=== PATIENT | female | born 1970 | race Caucasian/White ===

== ENCOUNTER 2022-11-28 07:53 | Observation (INO) ==
--- NOTE | 2022-10-29 11:39 | PAT Medication Instructions ---
Medication Instructions Date of Service October 29, 2022 Home Medications acetaminophen 500 mg tablet 500 mg PO QID PRN apple cider vinegar 300 mg tablet 300 mg PO QAM calcium carb-ergocalciferol (vit D2) 600 mg calcium-200 unit tablet 1 tab PO QAM cyanocobalamin (vitamin B-12) 500 mcg tablet (Vitamin B-12) 500 mcg PO QAM fremanezumab-vfrm 225 mg/1.5 mL subcutaneous syringe (Ajovy Syringe) 225 mg subcut MO furosemide 20 mg tablet (Lasix) 20 mg PO DAILY PRN gabapentin 100 mg tablet 200 mg PO TID levothyroxine 100 mcg tablet 100 mcg PO QAM lisinopril 20 mg tablet 20 mg PO QAM magnesium 250 mg tablet 250 mg PO BID montelukast 10 mg tablet 10 mg PO HS multivitamin 1 tab PO QAM riboflavin (vitamin B2) 100 mg tablet (Vitamin B-2) 200 mg PO BID sumatriptan succinate 25 mg tablet (Imitrex) 0 mg PO .COMPLEX PRN trazodone 100 mg tablet 100 mg PO HS zinc 10 mg tablet 10 mg PO DAILY Continue as directed fremanezumab-vfrm 225 mg/1.5 mL subcutaneous syringe (Ajovy Syringe) 225 mg subcut MO sumatriptan succinate 25 mg tablet (Imitrex) 0 mg PO .COMPLEX PRN(if needed) STOP taking 2 weeks before surgery (or as soon as possible if surgery is within 2 weeks) apple cider vinegar 300 mg tablet 300 mg PO QAM DO NOT take the morning of surgery calcium carb-ergocalciferol (vit D2) 600 mg calcium-200 unit tablet 1 tab PO QAM cyanocobalamin (vitamin B-12) 500 mcg tablet (Vitamin B-12) 500 mcg PO QAM furosemide 20 mg tablet (Lasix) 20 mg PO DAILY PRN lisinopril 20 mg tablet 20 mg PO QAM magnesium 250 mg tablet 250 mg PO BID multivitamin 1 tab PO QAM riboflavin (vitamin B2) 100 mg tablet (Vitamin B-2) 200 mg PO BID zinc 10 mg tablet 10 mg PO DAILY Take morning of surgery With a small sip of water, OTHERWISE NOTHING TO EAT OR DRINK AFTER MIDNIGHT: acetaminophen 500 mg tablet 500 mg PO QID PRN(if needed) gabapentin 100 mg tablet 200 mg PO TID levothyroxine 100 mcg tablet 100 mcg PO QAM Take evening before surgery acetaminophen 500 mg tablet 500 mg PO QID PRN(if needed) gabapentin 100 mg tablet 200 mg PO TID magnesium 250 mg tablet 250 mg PO BID montelukast 10 mg tablet 10 mg PO HS riboflavin (vitamin B2) 100 mg tablet (Vitamin B-2) 200 mg PO BID trazodone 100 mg tablet 100 mg PO HS Other Notes If you have any questions please call us at [phone] or [phone] or [phone] or [phone]
--- NOTE | 2022-11-07 13:26 | Anesthesiology Consultation ---
Date of Service November 07, 2022 Assessment & Plan (1) Encounter for pre-operative examination: - COVID screening: Per assessment on 11/07: No known COVID-19 positive contacts or current COVID-19 related symptoms. Travel screen negative. Patient vaccinated. At surgeon discretion if preop Covid testing being done. - LUE limb restriction Chart Review Chart Review: Acceptable Risk for Surgery and Patient seen in Pre Admission Testing Teaching & Discussion Pre-Anesthesia Teaching/Discussion Notes: Instructed NPO after midnight before surgery,except medications with 15 cc of water. Medication instructions provided according to the PAT guidelines. History Surgery Operation Date: 11/28/22 09:35 Proposed Procedures p C3-C5 Anterior Cervical Discectomy and Fusion, Spinal Cord Monitoring - Lei Myers DO Height/Weight Height: 5 ft 5 in Weight: 84.4 kg Allergies Allergy/AdvReac Type Severity Reaction Status Date / Time No Known Allergies Allergy Unverified 10/29/22 10:52 Medications Home Medications Medication Instructions Recorded Confirmed Last Taken acetaminophen 500 mg tablet 500 mg PO QID PRN Pain 10/29/22 10/29/22 Unknown apple cider vinegar 300 mg tablet 300 mg PO QAM 10/29/22 10/29/22 Unknown calcium carb-ergocalciferol (vit 1 tab PO QAM 10/29/22 10/29/22 Unknown D2) 600 mg calcium-200 unit tablet cyanocobalamin (vitamin B-12) 500 500 mcg PO QAM 10/29/22 10/29/22 Unknown mcg tablet (Vitamin B-12) fremanezumab-vfrm 225 mg/1.5 mL 225 mg subcut MO 10/29/22 10/29/22 Unknown subcutaneous syringe (Ajovy Syringe) furosemide 20 mg tablet (Lasix) 20 mg PO DAILY PRN swelling 10/29/22 10/29/22 Unknown gabapentin 100 mg tablet 200 mg PO TID 10/29/22 10/29/22 Unknown levothyroxine 100 mcg tablet 100 mcg PO QAM 10/29/22 10/29/22 Unknown lisinopril 20 mg tablet 20 mg PO QAM 10/29/22 10/29/22 Unknown magnesium 250 mg tablet 250 mg PO BID 10/29/22 10/29/22 Unknown montelukast 10 mg tablet 10 mg PO HS 10/29/22 10/29/22 Unknown multivitamin 1 tab PO QAM 10/29/22 10/29/22 Unknown riboflavin (vitamin B2) 100 mg 200 mg PO BID 10/29/22 10/29/22 Unknown tablet (Vitamin B-2) sumatriptan succinate 25 mg tablet 0 mg PO .COMPLEX PRN Migraine 10/29/22 10/29/22 Unknown (Imitrex) Headache trazodone 100 mg tablet 100 mg PO HS 10/29/22 10/29/22 Unknown zinc 10 mg tablet 10 mg PO DAILY 10/29/22 10/29/22 Unknown Past Medical History Medical History HTN (hypertension) HX: breast cancer Left breast (2019), radiation Hypothyroidism Migraine Seasonal allergies Sleep apnea CPAP (compliant) Exercise / Class Metabolic Activity II 4-5 Yardwork/Stairs/Walk up hill (one FS (no CP, no SOB)) Past Family History Family History Other No family history of adverse response to anesthesia Past Surgical History Surgical History History of esophagogastroduodenoscopy (EGD) History of lumpectomy of both breasts Hx of colonoscopy Hx of exploratory laparotomy abdominal Hx of gastric bypass Hx of hysterectomy Hx of lymph node excision left Hx of neck surgery ACDF C5-7 (11/22/17): Grade view 1 with glidescope #3, ETT 7.0 at [facility] Hx of tubal ligation Past Anesthesia History No Hx of Anesthesia Complications (except post-op nausea) and No Family Hx of Anesthesia Complications History of PONV No Hx of Motion Sickness and History of PONV (Improvement when pretreatment provided) Social History Smoking Status: Never smoker Do You Dip or Chew Tobacco: No Hx Alcohol Use: Yes alcohol intake frequency: holidays/special occasions only Hx Substance Use: No substance use type: does not use Review of Systems Patient denies chest pain, shortness of breath, dyspnea on exertion, fever, chills, cough, wheezing, palpitations. Physical Exam Vital Signs VITALS BP 103/71 P 74 TEMP 98.1 SP02 98%RA RESP 16 PHYSICAL Full cervical extension range of motion. Full TMJ range of motion. TMD 3 finger breaths Mallampati Score 2 Dentition: intact, crown Lungs: clear throughout to auscultation Cardiac: regular rate and rhythm, no murmurs noted Spine: normal Carotid arteries: negative bruit Extremities: no LE edema Lab Results Anesthesia Preop Results Results Anesthesia Widget: WBC 5.20 K/ul (4.8-10.8) 11/07/22 Hgb 12.0 g/dl (12.0-16.0) 11/07/22 Hct 36.1 % (37.0-47.0) L 11/07/22 Plt 276 K/uL (130-400) 11/07/22 Na 137 mmol/L (136-145) 11/07/22 K 4.2 mmol/L (3.5-5.1) 11/07/22 Cl 103 mmol/L (98-107) 11/07/22 CO2 28 mmol/L (21-32) 11/07/22 BUN 16 mg/dl (6-23) 11/07/22 Creat 0.97 mg/dl (0.6-1.2) 11/07/22 Glucose Level 116 mg/dl (70-99(Fasting)) H 11/07/22 PT 10.4 Seconds (9.0-12.0) 11/07/22 PTT 25.6 Seconds (21.0-31.0) 11/07/22 INR 0.9 (0.9-1.1) 11/07/22 Urine Color Yellow 11/07/22 Urine Appearance Clear (Clear) 11/07/22 Urine pH 6.0 (4.5-7.5) 11/07/22 Urine Specific [place] 1.006 (1.000-1.030) 11/07/22 Urine Protein Negative (Negative) 11/07/22 Urine Glucose (UA) Negative (Negative) 11/07/22 Urine Ketones Negative (Negative) 11/07/22 Urine Blood Negative (Negative) 11/07/22 Urine Nitrite Negative (Negative) 11/07/22 Urine Bilirubin Negative (Negative) 11/07/22 Urine Urobilinogen Negative (Negative) 11/07/22 Urine Leukocyte Esterase Negative (Negative) 11/07/22 Blood Type O Positive 11/07/22 Antibody Screen NEGATIVE 11/07/22 Testing Electrocardiogram Date: 11/07/22 NSR at 68bpm. Chest X-Ray Date: 11/07/22 FINDINGS: No lines and tubes are seen. The cardiomediastinal silhouette is normal. The lungs are clear. No evidence of pleural effusion or pneumothorax. IMPRESSION: No acute chest disease. COVID-19 Risk Screen Screening Information COVID-19 Screen Date: 11/07/22 Exposure 21 Days Family/Household +COVID Last 21 Days: No Exposure 10 Days Any COVID Exposure Last 10 Days: No Symptoms Last 10 Days Experienced COVID Sx Last 10 Days: No + COVID 0-90 Days COVID + in Last 0-90 Days: No
[~2022-11-28 07:53] MED LIST: ACETAMINOPHEN 500 MG TAB PO SCH; FAMOTIDINE/PF 20 MG/2 ML VIAL IV ONE; GABAPENTIN 600 MG DOSE PO SCH; LR 15ML/HR IV SCH; ceFAZolin 2000MG 2,000 MG/15 ML SYR IV SCH
[2022-11-28] MEDS ORDERED: MIDAZOLAM HCL 1 MG/ML 2ML VIAL ONE (08:48)
[2022-11-28] MEDS ORDERED: fentaNYL citrate PF 100 MCG/2 ML VIAL ONE ×2 (08:48)
[2022-11-28] MEDS ORDERED: LIDOCAINE 2% 2 ML VIAL/AMP(20MG/ML) INFIL ONE (08:55)
[2022-11-28] MEDS ORDERED: LARYING-O-JET KIT (LTA) ONE (08:55)
[2022-11-28] MEDS ORDERED: HYDROmorphone INJ 2 MG/ML SYR/VIAL ONE (08:56)
[2022-11-28] MEDS ORDERED: PROMETHAZINE HCL 6.25 MG in SODIUM CHLORIDE 0.9% 50 ML IV PRN (09:05)
[2022-11-28] MEDS ORDERED: HYDROmorphone INJ 2 MG/ML SYR/VIAL IV PRN (09:05)
[2022-11-28] MEDS ORDERED: ONDANSETRON INJ 2 MG/ML 2 ML VIAL IV PRN ×2 (09:05→13:32)
[2022-11-28] MEDS ORDERED: ePHEDrine sulfate 50 MG/ML AMP IV PRN (09:05)
[2022-11-28] MEDS ORDERED: ATROPINE SULFATE 0.1 MG/ML 10ML SYR IV PRN (09:05)
--- NOTE | 2022-11-28 09:27 | History & Physical Bridge Note ---
Date of Service November 28, 2022 History & Physical Bridge Note I have examined the patient, reviewed the History & Physical and in the interval since the performance of the History & Physical I have noted the following changes of clinical significance: no changes noted
--- NOTE | 2022-11-28 09:28 | History & Physical Report ---
Date of Service November 28, 2022 Assessment & Plan (1) Cervical stenosis of spinal canal: Plan: C3-C5 anterior cervical discectomy and fusion History of Present Illness Chief Complaint: Neck and arm pain Primary Care Provider: Jorge Munoz PA-C This is a 52-year-old female known to me the presents with chronic persistent neck and arm pain after failing since course of nonoperative care is here for surgical invention. Allergies Allergy/AdvReac Type Severity Reaction Status Date / Time No Known Allergies Allergy Verified 11/28/22 08:17 Home Medications Medication Instructions Recorded Confirmed Type acetaminophen 500 mg tablet 500 mg PO QID PRN Pain 10/29/22 11/28/22 History apple cider vinegar 300 mg tablet 300 mg PO QAM 10/29/22 11/28/22 History calcium carb-ergocalciferol (vit 1 tab PO QAM 10/29/22 11/28/22 History D2) 600 mg calcium-200 unit tablet cyanocobalamin (vitamin B-12) 500 500 mcg PO QAM 10/29/22 11/28/22 History mcg tablet (Vitamin B-12) fremanezumab-vfrm 225 mg/1.5 mL 225 mg subcut MO 10/29/22 11/28/22 History subcutaneous syringe (Ajovy Syringe) furosemide 20 mg tablet (Lasix) 20 mg PO DAILY PRN swelling 10/29/22 11/28/22 History gabapentin 100 mg tablet 200 mg PO TID 10/29/22 11/28/22 History levothyroxine 100 mcg tablet 100 mcg PO QAM 10/29/22 11/28/22 History lisinopril 20 mg tablet 20 mg PO QAM 10/29/22 11/28/22 History magnesium 250 mg tablet 250 mg PO BID 10/29/22 11/28/22 History montelukast 10 mg tablet 10 mg PO HS 10/29/22 11/28/22 History multivitamin 1 tab PO QAM 10/29/22 11/28/22 History riboflavin (vitamin B2) 100 mg 200 mg PO BID 10/29/22 11/28/22 History tablet (Vitamin B-2) sumatriptan succinate 25 mg tablet 0 mg PO .COMPLEX PRN Migraine 10/29/22 11/28/22 History (Imitrex) Headache trazodone 100 mg tablet 100 mg PO HS 10/29/22 11/28/22 History zinc 10 mg tablet 10 mg PO DAILY 10/29/22 11/28/22 History Past Med/Surg History Medical History HTN (hypertension) HX: breast cancer Left breast (2019), radiation Hypothyroidism Migraine Seasonal allergies Sleep apnea CPAP (compliant) Surgical History History of esophagogastroduodenoscopy (EGD) History of lumpectomy of both breasts Hx of colonoscopy Hx of exploratory laparotomy abdominal Hx of gastric bypass Hx of hysterectomy Hx of lymph node excision left Hx of neck surgery ACDF C5-7 (11/22/17): Grade view 1 with glidescope #3, ETT 7.0 at [facility] Hx of tubal ligation Family History Other No family history of adverse response to anesthesia Social History Smoking Status: Never smoker Second Hand Exposure: No; Do You Dip or Chew Tobacco: No; Tobacco Cessation Education Requested by Patient: No Hx Alcohol Use: Yes Hx Substance Use: No Preferred Language: Swiss Communication Ability: Effective Upper Cutter Machine Required: No Beliefs That Will Affect Care: None Current Living Situation: Spouse Other Information That Helps Us Care for You: No Feels Safe at Home: Yes Safety Concerns: Feels Safe At This Time Assistive Devices: CPAP Physical Exam Physical Exam: Patient is alert and oriented Heart regular rhythm Lungs clear Results & Data Results & Data Vital Signs (Past 12 Hours) Vital Signs Temp Pulse Resp BP Pulse Ox O2 Del Method 11/28/22 08:21 36.4 C L 64 21 104/71 99 Room Air
[2022-11-28] MEDS ORDERED: ROCURONIUM BROMIDE 10 MG/ML 5 ML VIAL IV ONE (09:37)
[2022-11-28] MEDS ORDERED: SCOPOLAMINE 1 MG TDSY TD ONE (09:41)
[2022-11-28] MEDS ORDERED: ceFAZolin 330 MG/ML 1 GM VIAL ONE (09:50)
[2022-11-28] MEDS ORDERED: diphenhydrAMINE 50 MG/ML VIAL ONE (10:22)
[2022-11-28] MEDS ORDERED: FLOSEAL HEMOSTATIC MATRIX 10ML TOP ONE (10:42)
[2022-11-28] MEDS ORDERED: METOCLOPRAMIDE HCL INJ 5 MG/ML 2 ML VIAL ONE (10:53)
[2022-11-28] MEDS ORDERED: DEXAMETHASONE SOD INJ 4 MG/ML VIAL ONE (10:53)
[2022-11-28] MEDS ORDERED: SUGAMMADEX SODIUM 200 MG/2 ML VIAL IV ONE (10:56)
[2022-11-28] MEDS ORDERED: ONDANSETRON INJ 2 MG/ML 2 ML VIAL ONE (10:56)
[2022-11-28] MEDS ORDERED: PHENYLEPHRINE HCL 10 MG/ML VIAL ONE (11:04)
[2022-11-28] MEDS ORDERED: KETOROLAC 30 MG/ML VIAL ONE (11:15)
--- NOTE | 2022-11-28 11:22 | Operative Report ---
Post Operative Report Pre & Post Diagnosis Operation Date: 11/28/22 09:35 Pre-Op Diagnosis: Cervical stenosis of spinal canal Post-Op Diagnosis: Cervical stenosis of spinal canal I identified the patient and participated in the time-out.: Yes Procedure Operation Date: 11/28/22 09:35 Actual Procedures 1. Anterior cervical discectomy with bilateral foraminotomies C3-C4 C4-C5. #2 anterior cervical arthrodesis C3-C4 C4-C5. #3 placement of coalition 7 mm cage filled with I factor at C3-C4 and C4-C5. Surgeon Lei Myers, Private Branch Exchange Service Advisor Krista Desir Estimated Blood Loss 10 Findings Consistent with Post-Op Diagnosis Specimens none Indications This is a 52-year-old female who presents above-mentioned diagnosis after failed extensive course of nonoperative care she is here for surgical intervention. Description of Procedure Patient was met with identified informed consent obtained. Patient was then taken to the operative suite underwent a patient placed in spine position and checked stable at [place] lateral. All bony prominences well-padded eyes inspected to ensure no external pressure placed upon the. This point the anterior cervical spine was prepped and draped in a sterile fashion. The assistance of fluoroscopy identified the C4 vertebral body and a transverse incision was placed along the right anterior aspect of the cervical spine overlying this region. Blunt dissection with assistance of bipolar Cardizem performed down to and exposing the anterior cervical spine from C3-C5. Self- retaining retractors placed. Then performed a complete discectomy of C4-C5 out to the uncovertebral joints bilaterally. Huntington distracting pins utilized to assist in visualization. Removed all posterior annular fibers longitudinal ligament bilateral foraminotomies performed endplates burred to subcortical bleeding bone and a 7 mm coalition cage filled with I factor tapped the position and screwed into place with fluoroscopic visualization. I then remove the distracting apparatus to proceeded to C3-C4. Again complete discectomy performed out to the uncovertebral joints bilaterally. Huntington distracting pins again utilized. Removed all posterior annular fibers longitudinal ligament bilateral foraminotomies performed. 7 mm coalition cage with I factor then t apped in position and screwed into place with fluoroscopic visualization. The incision was then copiously irrigated explored to ensure no damage to surrounding structures remaining bleeding. 10 round JOSE A drain inserted. The incision was then closed with 2 Vicryl in the fascia and 4 Monocryl for final skin closure. Steri-Strip sterile dressing placed. Patient awakened taken to PACU stable condition. Please note spinal cord monitoring was utilized at the procedure no changes noted. Lastly Krista Desir was present at the entire surgery and while the patient positioning complex portion of the surgery and final skin closure. I attest to the content of the Intraoperative Record and any orders documented therein. Any exceptions are noted below.
--- NOTE | 2022-11-28 11:57 | Fluoroscopy Report ---
FL cervical 2-3V CLINICAL HISTORY: ACDF C3-C5 COMPARISON STUDY: CT 06/13/2022 FLUOROSCOPY TIME: 10.2 seconds FLUOROSCOPY IMAGES: 2 EXPOSURE DOSE: 0.63 mGy FINDINGS: Radiopaque surgical sponge projects over the anterior operative bed inferior to the hyoid b one. Endotracheal tube in place. Anterior plate and screw fusion hardware again noted at C5-C7 with d iscectomy. Surgical drainage catheter. Interval anterior fusion with discectomy at C3-C4 and C4-C5. N o acute fracture identified. IMPRESSION: Fluoroscopic assistance as above. ACT 112: Negative or not required by law. Electronically signed by: Kleber Chen M.D. 11/28/2022 11:55 AM
[2022-11-28] MEDS: fentaNYL citrate PF 100 MCG/2 ML VIAL IV PRN ×2 (12:10→12:15)
[2022-11-28] MEDS ORDERED: bisacodyL 10 MG SUPP PR PRN (13:32)
[2022-11-28] MEDS ORDERED: ONDANSETRON 4 MG OD TAB PO PRN (13:32)
[2022-11-28] MEDS ORDERED: DO NOT ADMINISTER PNEUMOCOCCAL VACCINE PRN (13:32)
[2022-11-28] MEDS ORDERED: dexAMETHasone 8 MG in SYRINGE 0 ML IV PRN (13:32)
[2022-11-28] MEDS ORDERED: METOCLOPRAMIDE HCL INJ 5 MG/ML 2 ML VIAL IV PRN (13:32)
[2022-11-28] MEDS ORDERED: traMADol HCL 50 MG TABLET PO PRN (13:32)
[2022-11-28] MEDS ORDERED: hydrOXYzine HCl 25 MG TAB PO PRN (13:32)
[2022-11-28] MEDS ORDERED: diphenhydrAMINE Capsule 25 MG CAP PO PRN (13:32)
[2022-11-28] MEDS ORDERED: ACETAMINOPHEN 1,000 MG/100 ML VIAL IV PRN (13:32)
[2022-11-28] MEDS ORDERED: FAMOTIDINE 20 MG TAB PO PRN (13:32)
[2022-11-28] MEDS ORDERED: LORazepam 0.5 MG TAB PO PRN (13:32)
[2022-11-28] MEDS ORDERED: DO NOT ADMINISTER FLU VACCINE PRN (13:32)
[2022-11-28] MEDS ORDERED: MAGNESIUM HYDROXIDE SUSP 30 ML UDC PO PRN (13:32)
[2022-11-28] MEDS ORDERED: PROMETHAZINE HCL 12.5 MG in SODIUM CHLORIDE 0.9% 50 ML IV PRN (13:32)
[2022-11-28] MEDS ORDERED: HYDROmorphone INJ 1 MG/ML SYRINGE IV PRN (13:32)
[2022-11-28] MEDS ORDERED: ALUMINUM/MAGNESIUM SUSP 30 ML UDC PO PRN (13:32)
[2022-11-28] MEDS ORDERED: NALOXONE HCL 0.4 MG/1 ML VIAL/CARP IV PRN (13:32)
[2022-11-28] MEDS ORDERED: SUMAtriptan succinate 25 MG TAB PO PRN (13:32)
[2022-11-28] MEDS ORDERED: SOD PHOSPHATE/SOD BIPHOSPHATE ENEMA 132 ML BTL PR PRN (13:32)
[2022-11-28] MEDS ORDERED: LORazepam 2 MG/1 ML VIAL IV PRN (13:32)
[2022-11-28] MEDS ORDERED: RACEPINEPHRINE 2.25% NEBU SOLN 0.5 ML VIAL INH PRN (13:32)
[2022-11-28] MEDS ORDERED: HYDROmorphone INJ 0.5 MG/0.5 ML SYR IV PRN (13:32)
[2022-11-28] MEDS: GABAPENTIN 100 MG CAP PO SCH ×2 (14:45→21:06)
--- NOTE | 2022-11-28 15:32 | Anesthesiology Progress Note ---
Date of Service November 28, 2022 Anesthesia Post Procedure Vital Signs Vital Signs: Temp Pulse Pulse Resp BP Pulse Ox O2 Del Method 11/28/22 14:50 91 H 16 97 Room Air 11/28/22 14:18 84 16 132/91 94 Room Air 11/28/22 13:45 70 16 122/80 93 Room Air 11/28/22 13:15 36.4 C L 77 16 126/84 97 Room Air 11/28/22 13:05 36.4 C L 68 13 129/83 94 Room Air 11/28/22 12:50 36.4 C L 55 L 13 117/82 96 Room Air 11/28/22 12:40 66 15 132/86 97 Room Air 11/28/22 12:30 70 15 126/84 100 Nasal Cannula 11/28/22 12:20 79 13 131/94 100 Nasal Cannula 11/28/22 12:10 76 14 132/85 100 Oxymask 11/28/22 12:00 75 13 129/82 100 Oxymask 11/28/22 11:51 36.3 C L 84 12 118/85 100 Oxymask 11/28/22 08:21 36.4 C L 64 21 104/71 99 Room Air O2 Flow Rate 11/28/22 14:50 11/28/22 14:18 11/28/22 13:45 11/28/22 13:15 11/28/22 13:05 11/28/22 12:50 11/28/22 12:40 11/28/22 12:30 2 11/28/22 12:20 2 11/28/22 12:10 15 11/28/22 12:00 15 11/28/22 11:51 15 11/28/22 08:21 Pain Intensity Bilateral Neck: Pain Intensity: 4 Neck: Pain Intensity: 5 Transfer of Care Handoff Completed per policy Notes Mental Status: alert / awake / arousable Patient Amnestic to Procedure: Yes Nausea / Vomiting: adequately controlled Pain: adequately controlled Airway Patency, RR, SpO2: stable & adequate BP & HR: stable & adequate Hydration State: stable & adequate Anesthetic Complications: no major complications apparent
[2022-11-28] MEDS: ceFAZolin 2000MG 2,000 MG/15 ML SYR IV SCH (16:50)
[2022-11-28] MEDS: oxyCODONE HCL IR 5 MG TAB (IMMEDIATE RELEASE) PO PRN ×2 (17:22→22:13)
[2022-11-28] MEDS: LACTATED RINGER'S 1,000 ML IV SCH (18:02)
[2022-11-28] MEDS ORDERED: MONTELUKAST SODIUM 10 MG TABLET PO SCH (21:00)
[2022-11-28] MEDS ORDERED: traZODone HCL 100 MG TAB PO SCH (21:00)
[2022-11-28] MEDS ORDERED: DOCUSATE SODIUM/SENNA 50/8.6MG TAB PO SCH (21:00)
[2022-11-28] MEDS ORDERED: NON-FORMULARY MEDICATION (Riboflavin (Vitamin B2) [Vitamin B-2] 100 mg Tablet) PO SCH (21:00)
[2022-11-28] MEDS ORDERED: NON-FORMULARY MEDICATION (Magnesium 250 mg Tablet) PO SCH (21:00)
[2022-11-28] MEDS: ACETAMINOPHEN 500 MG TAB PO PRN (21:09)
[2022-11-29] MEDS: ceFAZolin 2000MG 2,000 MG/15 ML SYR IV SCH (02:16)
[2022-11-29] MEDS: LACTATED RINGER'S 1,000 ML IV SCH (02:24)
[2022-11-29] MEDS: oxyCODONE HCL IR 5 MG TAB (IMMEDIATE RELEASE) PO PRN ×3 (02:28→12:43)
[2022-11-29] MEDS: POLYETHYLENE (MIRALAX) 17 GM PACK PO SCH ×2 (05:21→11:40)
[2022-11-29] MEDS: ACETAMINOPHEN 500 MG TAB PO PRN (05:25)
[2022-11-29] MEDS ORDERED: LEVOTHYROXINE SODIUM 100 MCG TABLET PO SCH (06:30)
[2022-11-29] MEDS: GABAPENTIN 100 MG CAP PO SCH (07:53)
--- NOTE | 2022-11-29 08:22 | Discharge Summary ---
Date of Service November 29, 2022 Admission HPI Per Admitting Provider This is a 52-year-old female known to me the presents with chronic persistent neck and arm pain after failing since course of nonoperative care is here for surgical invention. Principal Diagnosis Cervical spinal stenosis with radiculopathy Discharge Data Allergies Allergy/AdvReac Type Severity Reaction Status Date / Time No Known Allergies Allergy Verified 11/28/22 08:17 Procedures Performed Operation Date: 11/28/22 09:35 Actual Procedures p C3-C5 Anterior Cervical Discectomy and Fusion, Spinal Cord Monitoring(Not Applicable) - Lei Myers DO Ordered Studies 11/28/22 09:35 [place] cervical 2-3V Routine Hospital Course (1) Cervical stenosis of spinal canal: Patient underwent anterior cervical discectomy fusion tolerated this well was taken to the orthopedic for postop labor postop day 1 she was up and ambulating swallowing well no hoarseness. JOSE A drain decreasing probably. Excellent strength testing. Pain well controlled. Subsidy discharged home. Discharge orders instructions from the chart for further review. Total Time Total Time Spent Total Time Spent (In Minutes): 20 minutes Discharge Plan Discharge Items Patient Disposition: Home - Self-Care Reason For Visit: Spinal Stenosis, Cervical Region Discharge Diagnosis: Cervical spinal stenosis with radiculopathy Activity: As commented below Non-emergency contact: Primary Care Provider Call non-emergency contact if: you have any medication questions Follow-up/Referrals: Jorge Munoz PA-C [Primary Care Provider] - Diet: Regular Addtl Attending Provider Instructions: ACTIVITY RECOMMENDATIONS: SELF CARE INSTRUCTIONS AFTER CERVICAL FUSIONS 1. No smoking. Smoking drastically decreases the chance of a solid fusion. 2. No bending, lifting more than 5 pounds, or twisting (roll like a log when turning in bed). 3. You may shower 3 days after surgery. Thoroughly dry wound. Do not soak in the tub. 4. Cervical collar: Must be worn at all times including sleeping. You may remove the brace only to bath, eat and if you are sitting in a recliner. 5. Please walk as much as you can for exercise. Gradually increase the distance that you walk as your endurance increases. SPECIAL CARE INSTRUCTIONS: VERY IMPORTANT TO READ AND REVIEW A. Do not take any anti-inflammatory medications (i.e. Indocin, Advil, Aspirin, Naprosyn, Aleve, Motrin, etc.) as these may inhibit the chance of a solid fusion. Tylenol is okay to take. B. Your surgical incision has been closed with a cosmetic suture under the skin that will dissolve in about 6 weeks. In 14 days, you can use a pair of clean scissors and cut the suture that is left outside of the skin at the ends of your incision. C. Complications are uncommon, but please contact us if you have any signs or symptoms of: 1. wound infection (fever higher than 102.5 degrees F, redness, separation of wound, drainage, or increasing pain from the incision) 2. blood clots in legs (pain, swelling, redness and warmth in legs) 3. urinary tract infection (fever higher than 102.5 degrees, burning upon urination or increased frequency of urination) 4. nerve problems (inability to walk on your toes or heels, numbness, loss of bowel or bladder control) 5. any other symptoms that concern you. D. Please call the office at if you have any concerns or questions about your operation or recovery. MANAGING PAIN AFTER SPINAL SURGERY 1. Narcotic medication is intended for short-term use and will be provided for surgical pain. Surgical pain usually lasts for a period of 4-6 weeks. Narcotic medication includes Percocet, Vicodin, Darvocet, Tylenol #3 or Lortab. 2. Longer-term pain is more appropriately treated with non-narcotic medication such as Tylenol ES. 3. Muscle spasm is not appropriately treated with narcotics. Muscle relaxers such as Soma, Flexeril or Skelaxin can be used along with Tylenol ES. 4. Remember that we all live with some "aches and pains". This is not unusual or uncommon after an injury or as we get older. 5. We will provide appropriate medication within the normal guidelines of their prescribed use. We will also be very cautious and aware of potential abuse and extended duration of patients' medication needs. 6. Please allow 2-3 days to process refills. Prescriptions will not be mailed but must be picked up at the office. FOLLOW UP VISIT: Keep your scheduled follow-up appointment. Any questions, please call the office at . Pending Studies at Discharge: No Stand-Alone Forms: My [facility], Smoking Cessation Medications and DC Order Prescriptions: New tramadol 50 mg tablet 50 mg PO Q6H PRN (Reason: pain, moderate) Qty: 30 0RF oxycodone 5 mg tablet 5 mg PO Q6H PRN (Reason: pain) Qty: 20 0RF Continued multivitamin Tablet 1 tab PO QAM riboflavin (vitamin B2) [Vitamin B-2] 100 mg Tablet 200 mg PO BID sumatriptan succinate [Imitrex] 25 mg Tablet 0 mg PO .COMPLEX PRN (Reason: Migraine Headache) Rx Instructions: take 1 tab at onset of headache; if no relief may repeat 1 tab after at least 2 hrs; max = 4 tabs/24 hr lisinopril 20 mg Tablet 20 mg PO QAM acetaminophen 500 mg Tablet 500 mg PO QID PRN (Reason: Pain) cyanocobalamin (vitamin B-12) [Vitamin B-12] 500 mcg Tablet 500 mcg PO QAM trazodone 100 mg Tablet 100 mg PO HS montelukast 10 mg Tablet 10 mg PO HS magnesium 250 mg Tablet 250 mg PO BID furosemide [Lasix] 20 mg Tablet 20 mg PO DAILY PRN (Reason: swelling) calcium carbonate-vitamin D2 600 mg calcium- 200 unit Tablet 1 tab PO QAM gabapentin 100 mg Tablet 200 mg PO TID apple cider vinegar 300 mg Tablet 300 mg PO QAM levothyroxine 100 mcg Tablet 100 mcg PO QAM zinc 10 mg Tablet 10 mg PO DAILY Ajovy Syringe 225 mg/1.5 mL Syringe 225 mg SUBCUT MO Discharge Orders: Discharge Order (Routine); Ordered 11/29/22 Ordered By: Lei Myers Admission Data Admit Date/Time: 11/28/22 11:26 Attending Provider: Lei Myers Admit Provider: Lei Myers Primary Care Provider: Jorge Munoz
[2022-11-29] MEDS ORDERED: CALCIUM 600MG + VIT D 400 IU TAB PO SCH (09:00)
[2022-11-29] MEDS ORDERED: lisinopril 20 MG TAB PO SCH (09:00)
[2022-11-29] MEDS ORDERED: MULTIVITAMIN TAB PO SCH (09:00)
[2022-11-29] MEDS ORDERED: CYANOCOBALAMIN (B-12) 500 MCG TABLET PO SCH (09:00)
[2022-11-29] MEDS ORDERED: dexAMETHasone 6 MG in SYRINGE 0 ML IV SCH (09:00)
== END 2022-11-29 13:19 | disposition home or self-care (01) ==
LOC: ASU 07:53 → 3E 07:53